=== PATIENT | female | born 1930 | race African-American/Black ===

== ENCOUNTER 2017-01-29 10:47 | Emergency (ER) | payer OTHER ==
[~2017-01-29] VITALS: Ht 162.6 cm; Wt 76.0 kg
[2017-01-29] MEDS ORDERED: SODIUM CHLORIDE 0.9% 1,000 ML IV ONE (11:20)
[2017-01-29] MEDS ORDERED: SODIUM CHLORIDE 0.9% 1000ML BAG (SEPSIS BOLUS) IV ONE (11:30)
[2017-01-29 11:47] LABS: BASOPHILS % 0.7 % (0.0-2.0); HEMATOCRIT. 40.1 % (36.0-48.0); HEMOGLOBIN. 13.5 g/dL (12.0-16.0); LYMPHOCYTES % 36.5 % (20.0-50.0); MEAN CORPUSCULAR HEMOGLOBIN 31.7 pg (28.0-32.0); MEAN CORPUSCULAR VOLUME 94.3 fL (81.0-99.0); MEAN PLATELET VOLUME 7.4 fl (7.4-10.4); MONOCYTES % 7.2 % (2.0-8.0); NEUTROPHILS % 54.6 % (40.0-76.0); PLATELET 214 x1000/uL (130-400); RED BLOOD CELL COUNT 4.25 mill/uL (4.2-5.4); RED CELL DISTRIBUTION WIDTH 13.2 % (11.6-14.6)
[2017-01-29 11:54] LABS: CHLORIDE 107 mEq/L (98-107)
[2017-01-29 12:02] LABS: CARBON DIOXIDE 27 mEq/L (21-32)
[2017-01-29 12:10] LABS: INR 1.1; PROTHROMBIN TIME 11.2 sec (9.4-11.6)
[2017-01-29 12:13] LABS: CLARITY URINE CLEAR (CLEAR); COLOR URINE YELLOW (YELLOW); GLUCOSE URINE NEGATIVE (NEGATIVE); KETONES URINE NEGATIVE (NEGATIVE); LEUKOCYTE ESTERASE URINE 1+ (NEGATIVE); NITRITE URINE NEGATIVE (NEGATIVE); OCCULT BLOOD URINE TRACE (NEGATIVE); PH URINE 6.5 (4.5-8.0); PROTEIN URINE NEGATIVE (NEGATIVE); UROBILINOGEN URINE 0.2 E.U./dL (0.2-1.0)
[2017-01-29 14:11] VITALS: BP 149/84
== END 2017-01-29 14:13 | disposition left against medical advice (07) ==
LOC: ER 10:58
DX: R55 Syncope and collapse (principal); E78.00 Pure hypercholesterolemia, unspecified; F03.90 Unspecified dementia, unspecified severity, without behavioral disturbance, psychotic disturbance, mood disturbance, and anxiety; J15.0 Pneumonia due to Klebsiella pneumoniae
CPT/HCPCS: 36415; 71010; 80053; 81001; 83605; 84484; 85025; 85610; 87040; 87077; 87086; 87186; 93005; 96360; 96361; 99285; J7030